=== PATIENT | female | born 1950 | race Caucasian/White ===

== ENCOUNTER → 2016-08-29 | Day surgery (SDC) | payer MEDICARE, OTHER ==
[~2016-08-29] VITALS: Ht 167.6 cm; Wt 97.0 kg
[~2016-08-29] MED LIST: 0.9% Sodium Chloride 1,000 ML IV PRN; ESTR0.3T2 PO; OMEP20TA86 PO; Sodium Chloride LOK Flush 10 mL Syringe IV PRN; fentaNYL-PF 50 mCg/mL 2 mL Inj IVPUSH PRN
[2016-08-29 08:51] VITALS: BP 114/70; PULSE 64; RESP 14; O2SAT 98
[2016-08-29 09:58] VITALS: BP 110/75; PULSE 64; RESP 13; O2SAT 91
[2016-08-29 10:08] VITALS: BP 112/72; PULSE 63; O2SAT 92
[2016-08-29 10:18] VITALS: BP 95/75; PULSE 77; O2SAT 95
--- NOTE | 2016-08-29 10:41 | ENDO ---
[address] [address] ENDOSCOPY PROCEDURE PATIENT: ERNESTO RANDHAWA : 1950 MR#: [id number] ADMIT: 08/29/2016 JOB ID: [id number] DATE: 08/29/2016 PRIMARY PROVIDER: BOO Phelps PROCEDURE: Esophagogastroduodenoscopy with biopsy. SURGEON: Sandoval Samayoa MD INDICATIONS: A 66-year-old female with chronic reflux reporting for Smith's screening. EQUIPMENT: GIF-H190. SEDATION: 1. 4 mg Versed, 2. 75 mcg fentanyl. COMPLICATIONS: None identified. PROCEDURAL INFORMATION: After the risks and benefits were explained, written and verbal informed consent was obtained. The patient was brought into the endoscopy suite and placed into the left lateral decubitus position. Sedation was achieved using the above-stated medications, with the addition of oxygen via nasal cannula. The scope was introduced into the mouth, through the bite block, and advanced to the second portion of the duodenum. The scope was slowly withdrawn to carefully examine the mucosa for any defects or lesions. Retroflexed views were accomplished in the stomach. The stomach was decompressed. The scope removed from the patient, who tolerated the procedure well. FINDINGS: 1. Duodenum: No significant pathology identified from the bulb through to the second portion. 2. Stomach: Mild gastropathy seen throughout. Random biopsies were taken for exclusion of Helicobacter or any other underlying histopathology. I did not see any evidence of a mass lesion. No outlet obstruction. Retroflexed views disclosed a moderate sliding hiatal hernia and obvious Michael's erosions/ulcers. In the direct look from the vantage point of the cardia, the Michael lesions were very easy to see and photographed. 3. Esophagus: The squamocolumnar junction correlated with the top of the gastric folds. The GEJ was at approximately 34.5 cm from the incisors. The diaphragmatic pinchcock was at about 40 cm from the incisors. No acute erosive changes. No strictures. No mass lesions. No suggestion of Smith's. ENDOSCOPIC DIAGNOSES: 1. Michael ulcers. 2. Large hiatal hernia. 3. Gastropathy. RECOMMENDATIONS: 1. Await histopathology. 2. If Helicobacter is found, it will need to be eradicated with standard triple therapy. 3. In light of the significant Michael ulcerations and size of the hiatal hernia, I would recommend surgical consultation. In the interim, esophageal manometry is arranged. 4. For now, continue antisecretory therapy.
--- NOTE | 2016-08-30 10:43 | PATH ---
SURGICAL PATHOLOGY Attending Physician:Erasto Velazquez CASE STATUS: Signed Out PATIENT NAME: ERNESTO RANDHAWA PID: [id number] : 1950 DATE COLLECTED:08/29/2016 16:11 SPECIMEN: Gastric, Biopsy CLINICAL HISTORY: 1. GASTRIC BIOPSY R/O H.PYLORI FINAL DIAGNOSIS: 1.GASTRIC BIOPSY: SMALL FRAGMENTS OF GASTRIC FUNDIC MUCOSA WITH MINIMAL CHRONIC GASTRITIS. Negative for evidence of Helicobacter on H&E stain. Negative for intestinal metaplasia. Negative for dysplasia and malignancy. ICD10 K29.70 GROSS DESCRIPTION: The specimen is received in one formalin filled container labeled with the patient's name, sublabeled "gastric" and consists of 2 portions of tissue which aggregate to 0.1 x 0.1 x 0.1 CM. The specimen is entirely submitted in one cassette. 08/29/2016 DAC MICRO DESCRIPTION: See diagnosis. ICD-9 CODES: CPT CODES: 1: 12295 Electronically Signed Out Sandoval Cronin MD [facility] [address], [place] [address] Technical component performed at [facility], [address] [place] [address] Ave[address], [address]
== END | disposition home or self-care (01) ==
LOC: END 00:32
PROVIDERS: ATTEND Internal Medicine Gastroenterology
DX: K29.50 Unspecified chronic gastritis without bleeding (principal); K25.9 Gastric ulcer, unspecified as acute or chronic, without hemorrhage or perforation; K44.9 Diaphragmatic hernia without obstruction or gangrene; K31.9 Disease of stomach and duodenum, unspecified; K21.9 Gastro-esophageal reflux disease without esophagitis
CPT/HCPCS: 43239; 88305; G0500; J2250; J3010; J7030